=== PATIENT | male | born 1965 | race African-American/Black ===

== ENCOUNTER → 2018-07-29 | Day surgery (SDC) | payer MEDICARE ==
[~2018-07-29] MED LIST: ATENOLOL50 MG PO; EPIVIR150 MG PO; FUROSEMIDE40 MG PO; KETAMINE HCL INJ 50 MG/ML 10 ML VIAL ONE; LIDOCAINE HCL 2% LOCAL INJ 5 ML SDV VIAL INJ ONE; LOSARTAN POTASS25 MG PO; MIDAZOLAM HCL 2 MG/2 ML VIAL ONE; NAPROXEN250 MG PO; NORVIR100 M1 PO; PREZISTA600 MG PO; PROAIR HFA INH8.5 GM INH; PROPOFOL IV EMULSION 10 MG/ML 50 ML VIAL ONE; TIVICAY PO; ULTRAM50 MG PO
--- OUTSIDE RECORDS SUMMARY | 2018-07-29 08:20 | XMS REPORT ---
Author Author Admin, [place] Organization [facility] Address [address] [place] [address] Phone Allergies, Adverse Reactions, Alerts Allergy Name Reaction Description Start Date Severity Status Provider No Known Allergies Maria Fernanda Lunsford CMA Conditions or Problems Problem Name Problem Code Onset Date Status Entry Date Provider Comment Standard Description Annotate Screening for colon cancer V76.51 Active Pastor ROMERO Screening for malignant neoplasms of colon Wheezing 786.07 Active Pastor ROMERO Wheezing Edema, ankles 782.3 Active Pastor ROMERO Edema Hypertension 401.9 Active Pastor ROMERO Unspecified essential hypertension Immunization update V15.9 Active Pastor ROMERO Unspecified personal history presenting hazards to health Obesity 278.00 Active Pastor ROMERO Obesity, unspecified DAPHNIE, adult 327.23 Active Pastor ROMERO Obstructive sleep apnea (adult) (pediatric) Polyarthralgia 719.49 Active Pastor ROMERO Pain in joint involving multiple sites HIV infection 042 Active Xavier Colon CMA Human immunodeficiency virus [HIV] disease Pre-procedural laboratory examination V72.63 Active Xavier Colon CMA Pre-procedural laboratory examination Medication List Medication Instructions Start Date Stop Date Generic Name NDC Status Provider Patient Instruction NAPROXEN 500 MG TABLET TAKE ONE TABLET BY MOUTH TWO TIMES A DAY NEEDED FOR PAIN AND INFLAMMATION NAPROXEN 69165969957 Active Pastor ROMERO Active ATENOLOL 50 MG TABLET TAKE ONE TABLET BY MOUTH EVERY DAY ATENOLOL 97277433728 Active Pastor ROMERO Active LOSARTAN POTASSIUM 50 MG ORAL TABLET 1 By Mouth once a day LOSARTAN POTASSIUM 04687286589 Active Pastor ROMERO Active EPIVIR 150 MG ORAL TABLET 2 tab once dialy LAMIVUDINE 71678794924 Active Pastor ROMERO Active FUROSEMIDE 20 MG ORAL TABLET 2 by mouth every am FUROSEMIDE 54181029251 Active Pastor ROMERO Active NORVIR 100 MG ORAL TABLET 1 By Mouth Every Day RITONAVIR 51256580562 Active Pastor ROMERO Active PREZISTA 800 MG ORAL TABLET 1 by mouth once a day DARUNAVIR ETHANOLATE 84515801729 Active Pastor ROMERO Active PROAIR HFA 108 (90 BASE) MCG/ACT INHALATION AEROSOL SOLUTION 2 puffs every 4 - 6 hours as needed for wheezing. ALBUTEROL SULFATE 63855487409 Active Pastor ROMERO Active TIVICAY 50 MG ORAL TABLET 1 By Mouth once a day DOLUTEGRAVIR SODIUM 58903007905 Active Pastor ROMERO Active TRAMADOL HCL 50 MG ORAL TABLET 1-2 tablets by mouth 4 times a day as needed for pain TRAMADOL HCL 28042516398 Active Pastor ROMERO Active Advance Directives Directive Description Start Date DISCUSSED - NO DECISION MADE Immunizations Vaccine Administration Date Value Standard Description hepatitis B vaccine #2 given given hepatitis B vaccine, unspecified formulation PEDIATRIC PNEUMOCOCCAL VACCINE ([id number]) #1 given pneumococcal conjugate vaccine, 13 valent influenza immunization (Flu Vax) has been administered given influenza virus vaccine, unspecified formulation hepatitis B vaccine #1 given given hepatitis B vaccine, unspecified formulation Vital Signs Date Name Value Unit Range Description blood pressure, diastolic 85 mm[Hg] BP snow blood pressure, systolic 177 mm[Hg] BP sys height E&M 63 [in_us] Bdy height pulse rate E&M 71 /min Heart rate respiratory rate E&M 16 /min Resp rate temperature E&M 98.1 [degF] Body temperature weight E&M 329 [lb_av] Weight Measured blood pressure, diastolic 82 mm[Hg] BP snow blood pressure, systolic 149 mm[Hg] BP sys pulse rate E&M 73 /min Heart rate blood pressure, diastolic, second observation 99 mm[Hg] BP snow blood pressure, diastolic 105 mm[Hg] BP snow blood pressure, systolic, second observation 173 mm[Hg] BP sys blood pressure, systolic 170 mm[Hg] BP sys height E&M 63 [in_us] Bdy height pulse rate E&M 65 /min Heart rate respiratory rate E&M 13 /min Resp rate temperature E&M 98.2 [degF] Body temperature weight E&M 331 [lb_av] Weight Measured blood pressure, diastolic, second observation 107 mm[Hg] BP snow blood pressure, diastolic 99 mm[Hg] BP snow blood pressure, systolic, second observation 180 mm[Hg] BP sys blood pressure, systolic 170 mm[Hg] BP sys height E&M 63 [in_us] Bdy height pulse rate E&M 67 /min Heart rate pulse rate #2 60 Heart rate respiratory rate E&M 12 /min Resp rate temperature E&M 97.7 [degF] Body temperature weight E&M 332 [lb_av] Weight Measured Diagnostic Results Date Name Value Unit Range Description Lab Report: CD4/CD8 Ratio Profile, Comp. Metabolic Panel (14), Lipid Nuñez ... - Chemistry thyroid stimulating hormone, serum 2.700 u[iU]/mL 0.450-4.500 Lab Report: Lipid Panel - Chemistry very low density lipoproteins 18 mg/dL 5-40 Lab Report: CD4/CD8 Ratio Profile, Comp. Metabolic Panel (14), RNA, Real ... - Chemistry hepatitis B surface antigen Negative Negative Lab Report: CD4/CD8 Ratio Profile, Comp. Metabolic Panel (14), Lipid Nuñez ... - Chemistry chloride, serum 99 mmol/L 96-106 Lab Report: CD4/CD8 Ratio Profile, Comp. Metabolic Panel (14), RNA, Real ... - Microbiology hepatitis A antibody, total Negative Negative Lab Report: CD4/CD8 Ratio Profile, Comp. Metabolic Panel (14), Lipid Nuñez ... - Chemistry urea nitrogen, blood 9 mg/dL 6-24 Lab Report: CD4/CD8 Ratio Profile, Comp. Metabolic Panel (14), RNA, Real ... - Serology HIV-1/HIV-2 Ab, serum Positive Negative human leukocyte antigen B57 Negative Lab Report: CD4/CD8 Ratio Profile, Comp. Metabolic Panel (14), Lipid Nuñez ... - Hematology mean corpuscular hemoglobin concentration, RBC 32.8 G/DL % 31.5-35.7 erythrocyte (RBC) count 4.35 X10E6/UL 10*6/mm3 4.14-5.80 Lab Report: CD4/CD8 Ratio Profile, Comp. Metabolic Panel (14), RNA, Real ... - Serology hepatitis C antibody, serum <0.1 0.0-0.9 Lab Report: CD4/CD8 Ratio Profile, Comp. Metabolic Panel (14), Lipid Nuñez ... - Chemistry absolute CD8 325 544-296 0603/12/21 Absolute Neutrophils 2.8 X10E3/UL 10*3/uL 1.4-7.0 Lab Report: Lipid Panel - Chemistry LDL cholesterol, serum 78 mg/dL 0-99 Lab Report: CD4/CD8 Ratio Profile, Comp. Metabolic Panel (14), Lipid Nuñez ... - Chemistry urea nitrogen/creatinine ratio, serum 12 9-20 Lab Report: CD4/CD8 Ratio Profile, Comp. Metabolic Panel (14), Lipid Nuñez ... - Hematology mean corpuscular volume, RBC 90 fL 79-97 Lab Report: Lipid Panel - Chemistry HDL cholesterol, serum 60 mg/dL >39 Lab Report: CD4/CD8 Ratio Profile, Comp. Metabolic Panel (14), Lipid Nuñez ... - Hematology monocytes as percent of blood leukocytes 11 % Not Estab. Lab Report: CD4/CD8 Ratio Profile, Comp. Metabolic Panel (14), Lipid Nuñez ... - Chemistry albumin/globulin ratio, serum 1.5 1.2-2.2 creatinine, serum 0.78 mg/dL 0.76-1.27 Lab Report: Lipid Panel - Chemistry cholesterol, serum 156 mg/dL 100-199 Lab Report: CD4/CD8 Ratio Profile, Comp. Metabolic Panel (14), Lipid Nuñez ... - Chemistry bilirubin, serum, total 0.2 mg/dL 0.0-1.2 Lab Report: CD4/CD8 Ratio Profile, Comp. Metabolic Panel (14), Lipid Nuñez ... - Hematology Eosinophil Absolute Count 0.0 X10E3/UL 10*3/uL 0.0-0.4 Lab Report: Chlamydia/GC Amplification - Lab chlamydia DNA probe Negative Negative Lab Report: CD4/CD8 Ratio Profile, Comp. Metabolic Panel (14), Lipid Nuñez ... - Chemistry aspartate aminotransferase (SGOT), serum 18 U/L 0-40 Lab Report: CD4/CD8 Ratio Profile, Comp. Metabolic Panel (14), Lipid Nuñez ... - Hematology red blood cell distribution width 13.9 % 12.3-15.4 leukocyte count, blood 4.6 X10E3/UL 10*3/mm3 3.4-10.8 Lab Report: CD4/CD8 Ratio Profile, Comp. Metabolic Panel (14), Lipid Nuñez ... - Chemistry potassium, serum 4.1 mmol/L 3.5-5.2 albumin, serum 4.3 g/dL 3.5-5.5 immature granulocytes, percentage of total cells, blood 0 % Not Estab. Lab Report: CD4/CD8 Ratio Profile, Comp. Metabolic Panel (14), Lipid Nuñez ... - Hematology lymphocyte count, blood, automated 1.3 X10E3/UL 10*3/mm3 0.7-3.1 hematocrit, blood 39.3 % 37.5-51.0 Lab Report: Chlamydia/GC Amplification - Microbiology Neisseria gonorrhoeae DNA probe Negative Negative Lab Report: CD4/CD8 Ratio Profile, Comp. Metabolic Panel (14), Lipid Nuñez ... - Chemistry sodium, serum 138 mmol/L 134-144 Lab Report: CD4/CD8 Ratio Profile, Comp. Metabolic Panel (14), RNA, Real ... - Serology toxoplasma gondii antibody, IgG <3.0 0.0-7.1 Lab Report: CD4/CD8 Ratio Profile, Comp. Metabolic Panel (14), Lipid Nuñez ... - Hematology neutrophils as percent of blood leukocytes 60 % Not Estab. basophils as percent of blood leukocytes 0 % Not Estab. Lab Report: CD4/CD8 Ratio Profile, Comp. Metabolic Panel (14), Lipid Nuñez ... - Serology HIV-1RNA, serum, by PCR, quantitative <20 copies/mL {Copies}/mL Lab Report: CD4/CD8 Ratio Profile, Comp. Metabolic Panel (14), RNA, Real ... - Toxicology HIV-2 antibodies, western blot Negative Negative Lab Report: CD4/CD8 Ratio Profile, Comp. Metabolic Panel (14), Lipid Nuñez ... - Serology rapid plasma reagin antibody, serum Non Reactive Non Reactive Lab Report: CD4/CD8 Ratio Profile, Comp. Metabolic Panel (14), Lipid Nuñez ... - Chemistry CD4/CD8 ratio 1.64 0.92-3.72 carbon dioxide, venous blood 26 mmol/L 20-29 Lab Report: CD4/CD8 Ratio Profile, Comp. Metabolic Panel (14), RNA, Real ... - Serology hepatitis B core antibody, total Negative Negative Lab Report: Lipid Panel - Chemistry triglyceride, serum, fasting 89 mg/dL 0-149 Lab Report: CD4/CD8 Ratio Profile, Comp. Metabolic Panel (14), Lipid Nuñez ... - Chemistry calcium, serum 8.8 mg/dL 8.7-10.2 alanine aminotransferase (SGPT), serum 14 U/L 0-44 Lab Report: CD4/CD8 Ratio Profile, Comp. Metabolic Panel (14), Lipid Nuñez ... - Hematology mean corpuscular hemoglobin, RBC 29.7 pg 26.6-33.0 Lab Report: CD4/CD8 Ratio Profile, Comp. Metabolic Panel (14), Lipid Nuñez ... - Chemistry protein, total, serum 7.1 g/dL 6.0-8.5 alkaline phosphatase, serum 52 U/L 39-117 Lab Report: CD4/CD8 Ratio Profile, Comp. Metabolic Panel (14), Lipid Nuñez ... - Hematology T-helper cells (CD4) as percent of blood lymphocytes 40.9 % 30.8-58.5 hemoglobin, blood 12.9 g/dL 13.0-17.7 T-suppressor cells (CD8) as percent of blood lymphocytes 25.0 % 12.0-35.5 lymphocytes as percent of blood leukocytes 28 % Not Estab. Lab Report: CD4/CD8 Ratio Profile, Comp. Metabolic Panel (14), Lipid Nuñez ... - Chemistry hemoglobin A1C, blood, as % of total hemoglobin 5.7 % 4.8-5.6 Lab Report: CD4/CD8 Ratio Profile, Comp. Metabolic Panel (14), Lipid Nuñez ... - Genetics/fertility eGFR if 119 mL/min/1.73m2 >59 Lab Report: CD4/CD8 Ratio Profile, Comp. Metabolic Panel (14), Lipid Nuñez ... - Hematology basophil count, absolute 0.0 x10E3/uL 0.0-0.2 Lab Report: CD4/CD8 Ratio Profile, Comp. Metabolic Panel (14), Lipid Nuñez ... - Chemistry globulin, serum 2.8 1.5-4.5 Estimated Glomerular Filtration Rate (calc) 103 mL/min/1.73m2 >59 Lab Report: CD4/CD8 Ratio Profile, Comp. Metabolic Panel (14), RNA, Real ... - Serology hepatitis B surface antibody Non Reactive Lab Report: CD4/CD8 Ratio Profile, Comp. Metabolic Panel (14), Lipid Nuñez ... - Hematology eosinophils as percent of blood leukocytes 1 % Not Estab. Lab Report: CD4/CD8 Ratio Profile, Comp. Metabolic Panel (14), Lipid Nuñez ... - Chemistry blood glucose, random 88 mg/dL 65-99 prostate specific antigen 4.4 ng/mL 0.0-4.0 Lab Report: CD4/CD8 Ratio Profile, Comp. Metabolic Panel (14), Lipid Nuñez ... - Hematology monocyte count, blood, automated 0.5 X10E3/UL 10*3/uL 0.1-0.9 T-helper cells (CD4) count 532 /UL uL 359-1519 platelet count 308 X10E3/UL 10*3/mm3 150-379 Encounters Date Encounter Provider Code Facility 06:29:14 [employer] Est Patient Detailed - [id number] Pastor ROMERO CPT-18695 [facility] 06:08:23 CDT Est Patient Detailed - [id number] Pastor ROMERO CPT-48612 [facility] 12:09:34 CDT New Patient Comprehensive - [id number] Pastor ROMERO CPT-33699 [facility] Procedures Code Procedure Name Date Entry Date Standard Description CPT-73932 Prevnar (PCV13) IM 10:35:50 [employer] CPT-23651 Hepatitis B - Adult 10:35:50 [employer] CPT-73755 INFLUENZA VACCINE QUADRIVALENT 3 YRS PLUS IM 12:43:21 CDT CPT-85195 Hepatitis B - Adult 15:04:51 CDT CPT-95466 Handling of specimen for transfer 13:27:38 CDT CPT-99884 Venipuncture 13:27:38 CDT
[2018-07-29 11:15] VITALS: BP 136/80
== END | disposition home or self-care (01) ==
LOC: OR 08:17
PROVIDERS: ATTEND Internal Medicine Gastroenterology
DX: Z12.11 Encounter for screening for malignant neoplasm of colon (principal); D12.3 Benign neoplasm of transverse colon; K58.9 Irritable bowel syndrome, unspecified; K57.30 Diverticulosis of large intestine without perforation or abscess without bleeding; K64.8 Other hemorrhoids; Z21 Asymptomatic human immunodeficiency virus [HIV] infection status; I10 Essential (primary) hypertension; G47.33 Obstructive sleep apnea (adult) (pediatric); J45.909 Unspecified asthma, uncomplicated; R07.9 Chest pain, unspecified; E66.01 Morbid (severe) obesity due to excess calories; Z01.810 Encounter for preprocedural cardiovascular examination; Z68.43 Body mass index [BMI] 50.0-59.9, adult
CPT/HCPCS: 45384; 88305; 93005; J2001; J2250; J2704; 45378